=== PATIENT | female | born 1985 | race Caucasian/White ===

== ENCOUNTER → 2017-12-30 14:22 | Observation (INO) ==
[2017-12-30 13:22] LABS: Bilirubin,Urine Negative (Negative); Blood,Urine Negative (Negative); Clarity,Urine Cloudy (Clear); Color,Urine Yellow (Yellow); Glucose,Urine (UA) Normal (Normal); Ketones,Urine Negative (Negative); Leukocyte Esterase,Urine Negative (Negative); Nitrite,Urine Negative (Negative); PH,Urine 7.5 pH Units (5.0-8.0); Protein,Urine Negative (Neg-Trace); Specific Gravity,Urine < 1.005 (1.010-1.025); Urobilinogen,Urine Normal (Normal)
[2017-12-30 13:24] LABS: Bacteria,Urine Moderate per hpf (None-Few); Hyaline Casts,Urine None Seen per lpf (None-Few); RBC,Urine 0-3 per hpf (0-3); Squamous Epithelial Cell,Urine Many per lpf (None-Few)
[2017-12-30 13:33] LABS: Amphetamine Screen,Urine Negative ng/mL (Cutoff=1000); Barbiturate Screen,Urine Negative ng/mL (Cutoff=200); Benzodiazepines Screen,Urine Negative ng/mL (Cutoff=200); Cannabinoid Screen,Urine Negative ng/mL (Cutoff = 50); Cocaine Screen,Urine Negative ng/mL (Cutoff= 300); Opiate Screen,Urine Negative ng/mL (Cutoff=300); Phencyclidine Screen,Urine Negative ng/mL (Cutoff=25)
--- NOTE | 2017-12-30 14:36 | OB/GYN Progress Note ---
Date of Encounter: 12/30/17 Time of Encounter: 14:34 - Assessment and Plan (1) 36 weeks gestation of Status: Acute (2) Uterine contractions Status: Acute Patient states no contractions in triage, cervix closed, no change on serial cervical exams, discharged home with labor and when to return to triage precautions. Patient verbalizes understanding Subjective - Subjective Interval history: 36+5 station gestation history of presents to triage with complaints of contractions this morning. Reports good movement, denies vaginal bleeding or leaking of fluid Antepartum ROS: movement normal, contractions, no loss of fluid, no vaginal bleeding Objective - Vital Signs Vital Signs: Intake and Output 12/29/17 12/30/17 12/30/17 23:59 07:59 15:59 Other: Weight 81.2 kg Patient Weight 12/30/17 23:59 Weight 81.2 kg - Exam FHR: auscultation normal FHR comments: Baseline 140 Abdomen: Present: soft, gravid Cervical dilation: Closed/thick/high - Labs Labs: Abnormal lab results Urine Clarity Cloudy (Clear) A 12/30/17 13:00 Ur Specific [place] < 1.005 (1.010-1.025) L 12/30/17 13:00 Urine Microscopic WBC 5-15 per hpf (0-3) H 12/30/17 13:00 Ur Squamous Epith Cells Many per lpf (None-Few) H 12/30/17 13:00 Urine Bacteria Moderate per hpf (None-Few) H 12/30/17 13:00
== END | disposition home or self-care (01) ==
LOC: 1NENULAB
PROVIDERS: ADMIT Obstetrics & Gynecology; ATTEND Obstetrics & Gynecology

== ENCOUNTER 2018-01-16 09:59 | Inpatient (IN) ==
[2018-01-16] MEDS ORDERED: Ringers Solution, Lactated 1,000 ML ONE (10:55)
[2018-01-16] MEDS ORDERED: Ringers Solution, Lactated 1,000 ML IVC SCH ×2 (11:00→15:57)
[2018-01-16] MEDS ORDERED: Ondansetron 4 MG/2 ML VIAL IVP PRN ×2 (11:00→15:57)
[2018-01-16] MEDS ORDERED: Naloxone 0.4 MG/ML INJ IVP PRN ×2 (11:00→15:57)
[2018-01-16] MEDS ORDERED: Metoclopramide 10 MG/2 ML VIAL IVP PRN ×2 (11:00→15:57)
[2018-01-16] MEDS ORDERED: Famotidine 20 MG/2 ML VIAL IVP PRN (11:00)
--- NOTE | 2018-01-16 11:29 | Anesthesia Evaluation PreOp ---
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: Other (Sciatica Left) Other Medical History: Denies Any Significant HX Anesthesia History: No Prior Anesthetic Complications : Yes (39 weeks ) Alcohol Use: none Drug use: none Medications and Allergies Aspirin 81 mg PO DAILY 12/30/17 [History] Vitamins 1 tab PO DAILY 12/30/17 [History] 3 Allergy/AdvReac Type Severity Reaction Status Date / Time sulfamethoxazole Allergy Vomiting Verified 01/16/18 10:25 [From Bactrim] trimethoprim [From Bactrim] Allergy Vomiting Verified 01/16/18 10:25 - Meds/Allergy Pre-op Review Medications Reviewed: Yes Allergies Reviewed: Yes Beta Blockers on Current Med List: No Anesthesia Results - Labs Laboratory Tests 11/05/17 09:35 Hgb 13.3 Hct 38.1 Plt Count 173 Anesthesia Exam O2 Sat Height 1.63 m Weight 83.007 kg Height: 5'4 Weight: 183 lbs NPO (# of Hours): MN Pain Scale: 0 - HEENT Pupil (Motor): Pupils equal, EOMI Mallampati: II Teeth: Normal Oral Opening: Greater than 3 - NETWORK CONTROL SUPERVISOR LOC: Oriented NETWORK CONTROL SUPERVISOR Motor: Normal RUE, Normal LUE, Normal RLE, Normal LLE, Normal Face NETWORK CONTROL SUPERVISOR Sensory: Normal: RUE, LUE, RLE, LLE, Face - Cardiac Rhythm: Regular Murmur: None JVD: No Carotid Bruit: No - Pulmonary Breath Sounds: bilateral Clear Respiratory Effort: Symmetrical Anesthesia Assess/Plan ASA Score: 2 Modified [place] Scale for Level of Consciousness: Cooperative, oriented, and tranquil Anesthetic Plan: Regional Monitoring Plan: Standard Monitors Recovery Plan: PACU (Discussed SAB, possible GA, agrees to proceed)
[2018-01-16] MEDS ORDERED: *HR* Oxytocin 10 UNIT/ML VIAL IM ONE (11:31)
[2018-01-16] MEDS ORDERED: Lidocaine -MPF 2% 5 ML VIAL ONE (11:32)
[2018-01-16] MEDS ORDERED: *HR* Morphine Sulfate/PF 10 MG/10 ML AMPUL ONE (11:32)
[2018-01-16] MEDS ORDERED: EPHEDrine 50 MG/ML VIAL ONE (11:32)
[2018-01-16] MEDS ORDERED: *HR* FentaNYL (PF) 100 MCG/2 ML VIAL ONE (11:32)
--- NOTE | 2018-01-16 12:11 | OB/GYN History & Physical ---
Date of Encounter: 01/16/18 Time of Encounter: 12:09 Assessment and Plan (1) 39 weeks gestation of Current visit: Yes Status: Acute Pt presents at 39 weeks EGA presents for rpt . Pt doing well without c /o. Will proceed with rpt . Questions answered and consent has previously been obtained. History of Present Illness Chief complaint: Here for rpt c-sec HPI: Ms. Navarrete is a 32 year old female female presents for rpt . She reports +GFM, no vb or lof. She is on 81 mg ASA for heterozygous factor V leiden. Past Med Surg Social Fam HX - Past Medical History Source: patient, old records reviewed Medical history: other Additional medical history: short ME interval - sees a grade checker every 6 months for this, factor five Psychiatric history: anxiety, panic disorder - Past Surgical History Surgical History: - Social History Smoking Status: Never smoker Smokeless Tobacco Status: No Alcohol use: none Drug use: none - Family History Mother Living Status: Still Living Hx Family Cardiac Disorders: Yes Hx Family Neurologic Disorders: Yes (stroke) Hx Family Medical Disorders: Yes (factor v) Obstetrical History - Pregnancies : 3 Medications and Allergies Aspirin 81 mg PO DAILY 12/30/17 [History] Vitamins 1 tab PO DAILY 12/30/17 [History] 3 Allergy/AdvReac Type Severity Reaction Status Date / Time sulfamethoxazole Allergy Vomiting Verified 01/16/18 10:25 [From Bactrim] trimethoprim [From Bactrim] Allergy Vomiting Verified 01/16/18 10:25 Exam - Constitutional Constitutional: well developed, well nourished, no acute distress - HEENT HEENT: EOMI, PERRL - Neck Neck exam: full ROM - Lungs Respiratory exam: CTAB - Cardiovascular Cardiovascular exam: RRR - Abdomen Abdomen: Present: gravid - Extremities Extremities exam: full ROM Deep Tendon Reflex Grade: 2+ Normal - Uterus Uterus exam: Present: enlarged Results All other labs normal.
[2018-01-16 12:12] LABS: Basophils % 0.5 %; Eosinophils # 0.1 K/mcL (0.0-0.6); Eosinophils % 1.2 %; Hematocrit 39.5 % (35.3-44.9); Hemoglobin 13.3 g/dL (11.5-15.4); Immature Granulocytes % 0.5 % (0-4); Lymphocytes # 1.6 K/mcL (0.6-4.6); Lymphocytes % 18.2 %; Mean Corpuscular HGB Conc 33.7 g/dL (31.6-35.5); Mean Corpuscular Hemoglobin 31.6 pg (28.0-33.3); Mean Corpuscular Volume 93.8 fL (83.0-100.0); Mean Platelet Volume 12.3 fL (9.4-12.4); Monocytes # 0.5 K/mcL (0.0-1.3); Monocytes % 6.2 %; Neutrophils # 6.3 K/mcL (1.6-8.9); Platelet Count 159 K/mcL (140-400); Red Blood Count 4.21 M/mcL (3.82-4.97); Red Cell Distribution Width 13.4 % (11.5-14.5); Segmented Neutrophils % 73.4 %
[2018-01-16 12:55] LABS: Amphetamine Screen,Urine Negative ng/mL (Cutoff=1000); Barbiturate Screen,Urine Negative ng/mL (Cutoff=200); Benzodiazepines Screen,Urine Negative ng/mL (Cutoff=200); Cannabinoid Screen,Urine Negative ng/mL (Cutoff = 50); Cocaine Screen,Urine Negative ng/mL (Cutoff= 300); Opiate Screen,Urine Negative ng/mL (Cutoff=300); Phencyclidine Screen,Urine Negative ng/mL (Cutoff=25)
[2018-01-16] MEDS ORDERED: Acetaminophen IV 1,000 MG/100 ML INFUS..BTL IVPB ONE (13:06)
[2018-01-16] MEDS ORDERED: *HR* HYDROmorphone (PF) 1 MG/ML SYRINGE IVP PRN ×2 (13:06→15:57)
[2018-01-16] MEDS ORDERED: *HR* Promethazine 25 MG/ML VIAL IVP PRN (13:06)
[2018-01-16] MEDS ORDERED: Oxytocin 20 units/ LR 1000 mL 20 UNIT/1,000 ML BAG IVC ONE (13:25)
--- NOTE | 2018-01-16 13:51 | OB/GYN Procedure Note ---
Section - Date of procedure: 01/16/18 Preop diagnosis: desires repeat Post-op diagnosis: same Procedure: section, repeat low transverse Surgeon: Hollis Waite Was there an assistant professor of life sciences present: No Anesthesia Type: Spinal section complications: none Disposition: PACU - (s) A Delivery Date: 01/16/18 Infant Delivery Time: 12:53 Presentation: vertex Position: OA Route of delivery: Gender: Male Viability: Viable Pounds: 7 Ounces: 10 at 1 minute: 9 at 5 minutes: 9 Placenta: spontaneous Cord: 3 umbilical vessels - Narrative Narrative: Patient's 32-year-old female presents today for repeat section. She is aware operative risks and desired to proceed. Description procedure: Patient was taken operating room where spinal anesthesia was administered. She is prepped draped in usual sterile fashion bladder was drained of clear urine. Scalp was used to make Pfannenstiel skin incision which was sharply taken down the rectus fascia. Fascia incised midline fascial incision was extended bilaterally. Plan is developed and rectus muscle rectus fashion so appendiceal vertex was run midline peritoneum was entered bluntly. Bladder flap was developed and lower uterine segment. Bladder blade was repositioned. Scalp was used to make a transverse uterine incision was this was extended bluntly bilaterally. Membranes were ruptured clear fluid. Infant was delivered from vertex presentation without difficulty were weight was found to be 7 lbs. 10 oz. Apgars of 9 at 1 minute and 9 at 5 minutes. With spontaneous delivery of a normal placenta and manual massage of the uterine cavity revealed it to be free of all residual tissue. Uterus closed the Vicryl running lock stitch second imbricating layer was placed with the first obtain hemostasis. Again irrigation was performed hemostasis was ensured. Fascia was closed with 0 Vicryl cecilia running manner.Once the fascia was Closed the fascia again irrigation was performed hemostasis was ensured. Skin edges reapproximated with 4-0 Vicryl. All sponge counts counts are correct patient was taken recovery in good condition
[2018-01-16] MEDS ORDERED: Rho Immune Globulin 1,500 UNIT SYRINGE IM ONE (15:57)
[2018-01-16] MEDS ORDERED: Sennosides 8.6 MG TABLET PO PRN (15:57)
[2018-01-16] MEDS ORDERED: Simethicone 80 MG TAB.CHEW PO PRN (15:57)
[2018-01-16] MEDS: Oxytocin 20 units/ LR 1000 mL 20 UNIT/1,000 ML BAG IVC SCH (16:44)
[2018-01-17] MEDS: Oxytocin 20 units/ LR 1000 mL 20 UNIT/1,000 ML BAG IVC SCH (02:17)
[2018-01-17] MEDS: Ibuprofen 600 MG TABLET PO PRN ×3 (04:10→21:08)
[2018-01-17] MEDS: *HR* Enoxaparin 40 MG/0.4 ML SYRINGE SQ SCH (06:50)
[2018-01-17] MEDS: *HR* OxyCODONE/APAP 5/325 TABLET PO PRN ×3 (06:50→21:08)
[2018-01-17 07:35] LABS: Basophils % 0.3 %; Eosinophils % 0.2 %; Hematocrit 33.2 % (35.3-44.9); Hemoglobin 11.2 g/dL (11.5-15.4); Immature Granulocytes % 0.4 % (0-4); Lymphocytes # 1.1 K/mcL (0.6-4.6); Lymphocytes % 9.3 %; Mean Corpuscular HGB Conc 33.7 g/dL (31.6-35.5); Mean Corpuscular Hemoglobin 31.8 pg (28.0-33.3); Mean Corpuscular Volume 94.3 fL (83.0-100.0); Mean Platelet Volume 11.6 fL (9.4-12.4); Monocytes # 0.7 K/mcL (0.0-1.3); Monocytes % 6.2 %; Neutrophils # 9.5 K/mcL (1.6-8.9); Platelet Count 139 K/mcL (140-400); Red Blood Count 3.52 M/mcL (3.82-4.97); Red Cell Distribution Width 13.6 % (11.5-14.5); Segmented Neutrophils % 83.6 %
--- NOTE | 2018-01-17 08:30 | Anesthesia Evaluation Post Op ---
Date of Encounter: 01/17/18 Time of Encounter: 08:10 - Vital Signs Vital Signs: VSS - Lungs Lungs: Clear Ascult./Percussion - Airway Airway: Non-obstructed - Cardiovascular Regular Rate - Mental Status Mental Status: Alert & Oriented, Answers Appropriately - Pain Pain Scale: 1 Pain Scale used: Numeric (1 - 10) - Nausea Vomiting Nausea Vomiting: Not Present - Hydration Hydration: Tolerates oral liquids, Able to void - Discharge PostOp Status: Transfer Patient to floor
[2018-01-17] MEDS: Prenatal Vit/FA 1 EACH TABLET PO SCH (08:35)
[2018-01-17] MEDS ORDERED: Aspirin 81 MG TAB.CHEW PO SCH (09:00)
--- NOTE | 2018-01-17 09:48 | OB/GYN Progress Note ---
Date of Encounter: 01/17/18 Time of Encounter: 09:46 - Assessment and Plan (1) Status post repeat low transverse section Current Visit: Yes Status: Acute Continue routine care Abdominal binder prn consult when necessary Anticipate discharge to home tomorrow Subjective - Subjective Principal diagnosis: s/p RLTCS Interval history: Feeling well. Out of bed without dizziness. Some abdominal discomfort-using abdominal binder. Cramping minimal, using ibuprofen and Percocet. Bottlefeeding . Voiding without difficulty. Passing flatus, no BM yet. Tolerating liquid diet. Patient reports: appetite normal, voiding normally, pain well controlled, ambulating normally [place]: doing well, bottle feeding Objective - Vital Signs Latest vital signs: Vital Signs Temp Pulse Resp BP Pulse Ox 01/17/18 08:55 97.3 F L 82 16 108/70 95 01/17/18 04:40 98.2 F 101 16 123/63 94 01/17/18 04:05 97.6 F 80 14 116/71 99 01/17/18 00:50 98.0 F 84 16 120/73 97 01/16/18 20:20 97.5 F L 79 16 122/77 96 01/16/18 18:53 98 16 122/72 97 01/16/18 18:00 97.5 F L 92 16 116/67 01/16/18 16:45 97.6 F 93 16 121/70 99 01/16/18 16:15 90 14 123/75 01/16/18 15:45 97.5 F L 91 12 121/82 99 Intake and Output 01/16/18 01/17/18 01/17/18 23:59 07:59 15:59 Intake Total 1000 / 1000 600 / 600 Output Total 1400 / 1400 Balance -400 / -400 600 / 600 Intake: IV Fluids 1000 / 1000 Pitocin 20 unit In 1,000 ml @ 1000 / 1000 125 mls/hr IVC .Q8H HESHAM Rx#: [id number] Oral 0 / 0 600 / 600 Output: Catheter 1400 / 1400 Other: Weight 103.4 kg Patient Weight 01/17/18 23:59 Weight 103.4 kg - Exam Lungs: bilateral: normal Chest: Normal S1, Normal S2 Extremities: Present: normal Abdomen: Present: normal appearance, soft Incision: Present: normal, dry, dressed Uterus: Present: normal, firm Fundal Height: 1 (Below and Midline) - Labs Labs: Laboratory Results - last 24 hr 01/16/18 01/16/18 01/17/18 10:44 10:44 07:07 WBC 8.6 11.3 H RBC 4.21 3.52 L Hgb 13.3 11.2 L D Hct 39.5 33.2 L MCV 93.8 94.3 MCH 31.6 31.8 MCHC 33.7 33.7 RDW 13.4 13.6 Plt Count 159 139 L MPV 12.3 11.6 Immature Gran % 0.5 0.4 Seg Neutrophils % 73.4 83.6 Lymphocytes % 18.2 9.3 Monocytes % 6.2 6.2 Eosinophils % 1.2 0.2 Basophils % 0.5 0.3 Neutrophils # 6.3 9.5 H Lymphocytes # 1.6 1.1 Monocytes # 0.5 0.7 Eosinophils # 0.1 0.0 Basophils # 0.0 0.0 Urine Opiates Screen Negative Ur Barbiturates Screen Negative Ur Phencyclidine Scrn Negative Ur Amphetamines Screen Negative U Benzodiazepines Scrn Negative Urine Cocaine Screen Negative U Marijuana (THC) Screen Negative Ur Drug Screen Interp See Below
[2018-01-18] MEDS: *HR* OxyCODONE/APAP 5/325 TABLET PO PRN (04:40)
[2018-01-18] MEDS: Ibuprofen 600 MG TABLET PO PRN (04:41)
[2018-01-18] MEDS: *HR* Enoxaparin 40 MG/0.4 ML SYRINGE SQ SCH (06:32)
[2018-01-18] MEDS: Prenatal Vit/FA 1 EACH TABLET PO SCH (08:13)
[2018-01-18 08:25] VITALS: BP 125/82
--- NOTE | 2018-01-18 09:48 | Discharge Summary ---
Date of Encounter: 01/18/18 Time of Encounter: 09:48 - Discharge Diagnosis (1) 39 weeks gestation of Priority: Primary Status: Acute (2) Status post repeat low transverse section Priority: Primary Status: Acute Comments: Doing well, will d/c home. - Discharge Medications Prescriptions: Ibuprofen [Motrin] 600 mg PO Q6HR PRN #40 tablet PRN Reason: Cramping OxyCODONE/APAP 5/325 [Percocet 5/325 MG] 1 each PO Q6HR PRN 7 Days #28 tablet PRN Reason: post op pain Home Medications: Aspirin 81 mg PO DAILY 12/30/17 [History] Vitamins 1 tab PO DAILY 12/30/17 [History] Ibuprofen [Motrin] 600 mg PO Q6HR PRN #40 tablet 01/18/18 [Rx] OxyCODONE/APAP 5/325 [Percocet 5/325 MG] 1 each PO Q6HR PRN 7 Days #28 tablet [Rx] Allergies/Adverse Reactions: 3 Allergy/AdvReac Type Severity Reaction Status Date / Time sulfamethoxazole Allergy Vomiting Verified 01/16/18 10:25 [From Bactrim] trimethoprim [From Bactrim] Allergy Vomiting Verified 01/16/18 10:25 Data Procedures and tests throughout hospitalization: Laboratory Tests 01/16/18 01/16/18 01/17/18 10:44 10:44 07:07 WBC 8.6 11.3 H RBC 4.21 3.52 L Hgb 13.3 11.2 L D Hct 39.5 33.2 L MCV 93.8 94.3 MCH 31.6 31.8 MCHC 33.7 33.7 RDW 13.4 13.6 Plt Count 159 139 L MPV 12.3 11.6 Immature Gran % 0.5 0.4 Seg Neutrophils % 73.4 83.6 Lymphocytes % 18.2 9.3 Monocytes % 6.2 6.2 Eosinophils % 1.2 0.2 Basophils % 0.5 0.3 Neutrophils # 6.3 9.5 H Lymphocytes # 1.6 1.1 Monocytes # 0.5 0.7 Eosinophils # 0.1 0.0 Basophils # 0.0 0.0 Urine Opiates Screen Negative Ur Barbiturates Screen Negative Ur Phencyclidine Scrn Negative Ur Amphetamines Screen Negative U Benzodiazepines Scrn Negative Urine Cocaine Screen Negative U Marijuana (THC) Screen Negative Ur Drug Screen Interp See Below - Impressions Doing well s/p . Ambulating. reg diet without n/v. good pain control. Date of admission: 01/16/18 09:59 Primary care physician: Bonnie Jose CNP - Patient Status Disposition: Home, Self-Care Condition: Good Functional capacity at discharge: independent ambulation Overall status at discharge: patient is progressing back to baseline - Discharge Instructions Follow Up With: Hollis Waite MD [Partnered Physician] - - Diet and Activity Activity: increase activity as tolerated Diet: advance to your usual diet Hospital Course UNIVERSITY MANAGER Time Attestation: Total time spent providing and/or coordinating discharge services: Exam - Constitutional Vitals: Temp Pulse Resp BP Pulse Ox 98.1 F 84 16 125/82 99 01/18/18 08:22 01/18/18 08:22 01/18/18 08:22 01/18/18 08:22 01/18/18 08:22 General appearance IM: A&O X 3 - Respiratory Respiratory exam: Present: CTAB - Cardiovascular Cardiovascular exam IM: Present: RRR - GI/Abdominal GI/Abdominal exam IM: normal bowel sounds Incision: normal, dry, intact - Uterus Position: 2 Fingers Below Umbilicus - Extremities Exam Extremities exam IM: Present: full ROM - Neurological Exam Neurological exam: oriented X3 - VTE Documentation of Mechanical Device: Intermittent pneumatic compression device
== END 2018-01-18 11:16 | disposition home or self-care (01) | DRG 765 ==
LOC: 1NENULAB 09:59 → 1NENUOBS 15:54
PROVIDERS: ADMIT Obstetrics & Gynecology; ATTEND Obstetrics & Gynecology